=== PATIENT | female | born 1970 | race African-American/Black ===

== ENCOUNTER 2024-04-18 23:38 | Emergency (ER) | payer MEDICAID ==
[~2024-04-18] VITALS: Ht 160 cm; Wt 71.2 kg
[2024-04-18 23:57] VITALS: O2SAT 99
[2024-04-19] MEDS: KETOROLAC 15MG/ML VIAL IM ONE (00:30)
[2024-04-19] MEDS ORDERED: LIDO700A15 TP (02:10)
[2024-04-19] MEDS ORDERED: NAPR-1176 MT (02:10)
[2024-04-19 02:37] VITALS: BP 155/76; PULSE 74; RESP 20; TEMP 36.61404; O2SAT 99
== END 2024-04-19 03:02 | disposition home or self-care (01) ==
LOC: EDSEX 23:38 → ER 23:38
DX: M25.511 Pain in right shoulder (principal); J44.9 Chronic obstructive pulmonary disease, unspecified; I10 Essential (primary) hypertension; Z79.1 Long term (current) use of non-steroidal anti-inflammatories (NSAID); Z98.890 Other specified postprocedural states
CPT/HCPCS: 99283; 73030; 96372; J1885